=== PATIENT | female | born 1935 | race Caucasian/White ===

== ENCOUNTER → 2016-12-22 | Outpatient (CLI) | payer MEDICARE, OTHER ==
[~2016-12-22] MED LIST: AMLO2.5T PO; ASCO1TAB PO; ASPI325T PO; ATEN50TA PO; CALC-191 PO; DOCU100C PO; ESOM20CA PO; FENT1PAT TD; LEVO75TA10 PO; MULT-933 PO; OXYC-532 PO; POTA2TAB18 PO; SERT50TA12 PO; [UNRECOGNIZED DRUG - CODE] PO
[2016-12-22 12:36] LABS: BASOPHILS % (AUTO) 0.3 % (0-2); EOSINOPHILS # (AUTO) 0.2 T/MM3 (0-0.5); EOSINOPHILS % (AUTO) 2.1 % (0-4); HCT - HEMATOCRIT 40.6 % (36-46); HGB - HEMOGLOBIN 12.8 GM/DL (12-16); IMMATURE GRANULOCYTE # (AUTO) 0.02 T/MM3 (0.00-0.03); IMMATURE GRANULOCYTE % (AUTO) 0.3 % (0.0-0.5); MEAN CORPUSCULAR HGB 29.2 UUG (26-34); MEAN CORPUSCULAR HGB CONC(MCHC 31.5 GM/DL (31-37); MEAN CORPUSCULAR VOLUME 92.5 UM3 (80-100); MEAN PLATELET VOLUME 9.5 UM3 (9.4-12.4); MONOCYTES # (AUTO) 0.6 T/MM3 (0-0.8); MONOCYTES % (AUTO) 8.5 % (0-9.0); NEUTROPHILS #(AUTO)-ABSOLUTE 5.4 T/MM3 (1.8-7.7); NEUTROPHILS % (AUTO) 74.8 % (33-66); RED BLOOD COUNT 4.39 M/MM3 (4.00-5.20); WBC - WHITE BLOOD COUNT 7.2 T/MM3 (4.5-11.0)
[2016-12-22 12:45] LABS: ALBUMIN 4.4 G/DL (3.5-5.0); ALBUMIN/GLOBULIN RATIO 1.4 RATIO (1.1-2.2); ALKALINE PHOSPHATASE 61 U/L (38-126); ALT (SGPT) 23 U/L (9-52); ANION GAP 10 MEQ/L (5-15); AST (SGOT) 36 U/L (14-36); BUN/CREATININE RATIO 9 RATIO (6-26); CALCIUM 9.8 MG/DL (8.4-10.2); CHLORIDE 103 MEQ/L (98-107); CO2 - CARBON DIOXIDE 29 MEQ/L (22-30); CREATININE 1.6 MG/DL (0.7-1.2); GLOMERULAR FILTRATION RATE 31; GLUCOSE 122 MG/DL (65-110); LDH 490 U/L (313-618); MAGNESIUM 2.2 MG/DL (1.6-2.3); POTASSIUM 4.3 MEQ/L (3.6-5); SODIUM 142 MEQ/L (134-144); TOTAL PROTEIN 7.6 G/DL (6.3-8.2)
[2016-12-22 14:05] LABS: CA 27-29 CALCULATED 16.17 U/ML (0-37.7)
== END ==
LOC: LAB 11:53
PROVIDERS: ATTEND Internal Medicine Hematology & Oncology
DX: C50.511 Malignant neoplasm of lower-outer quadrant of right female breast (principal); Z85.3 Personal history of malignant neoplasm of breast
CPT/HCPCS: 36415; 80053; 82378; 83615; 83735; 85025; 86300